=== PATIENT | female | born 1980 | race Asian ===

== ENCOUNTER 2019-08-13 18:32 | Outpatient (CLI) | payer SELFPAY | END 2019-08-13 18:33 | disposition EMS.NT | LOC: EMS 18:32 | PROVIDERS: ATTEND Surgery | DX: R55 Syncope and collapse (principal); F41.9 Anxiety disorder, unspecified ==

== ENCOUNTER 2020-02-01 12:24 | Emergency (ER) | payer OTHER ==
[2020-02-01 12:47] LABS: MUDS CUTOFF CONCENTRATIONS CUTOFF CONC BELOW:
[2020-02-01 12:47] LABS: BASOPHILS # (AUTO) 0.1 10^3/uL (0.0-0.1); BASOPHILS % (AUTO) 1.2 %; EOSINOPHILS # (AUTO) 0.6 10^3/uL (0.0-0.7); EOSINOPHILS % (AUTO) 5.5 %; HGB - HEMOGLOBIN 15.9 g/dL (12.0-16.0); LYMPHOCYTES # (AUTO) 2.3 10^3/uL (1.5-3.5); LYMPHOCYTES % (AUTO) 23.2 %; MEAN CORPUSCULAR HEMOGLOBIN 32.4 pg (27.0-31.0); MEAN CORPUSCULAR HGB CONC 32.9 g/dL (32.0-36.0); MEAN CORPUSCULAR VOLUME 98.8 fL (81.0-99.0); MEAN PLATELET VOLUME 8.6 fL (7.9-10.8); MONOCYTES # (AUTO) 0.7 10^3/uL (0.0-1.0); MONOCYTES % (AUTO) 6.8 %; NEUTROPHILS # (AUTO) 6.3 10^3/uL (1.5-6.6); NEUTROPHILS % (AUTO) 62.8 %; PLT - PLATELET COUNT 282 10^3/uL (130-450); WHITE BLOOD COUNT 10.1 x10^3/uL (4.8-10.8)
[2020-02-01 12:51] LABS: BILIRUBIN,URINE NEGATIVE (NEGATIVE); GLUCOSE, URINE (UA) NEGATIVE (NEGATIVE); KETONES,URINE (UA) NEGATIVE (NEGATIVE); LEUKOCYTE ESTERASE, URINE SMALL (NEGATIVE); NITRITE,URINE NEGATIVE (NEGATIVE); OCCULT BLOOD,URINE NEGATIVE (NEGATIVE); PH,URINE 6.5 PH (5.0-7.5); PROTEIN,URINE NEGATIVE (NEGATIVE); UROBILINOGEN,URINE 0.2 (NORMAL) E.U./dL (NORMAL)
[2020-02-01 12:56] LABS: CLARITY,URINE CLEAR (CLEAR); HCG UR QUAL NEGATIVE
[2020-02-01 13:03] LABS: ACETAMINOPHEN < 10 ug/mL (10-30); ALBUMIN 4.8 g/dL (3.2-5.5); ALBUMIN/GLOBULIN RATIO 1.2 (1.0-2.2); ALKALINE PHOSPHATASE 46 IU/L (42-121); ALT ALANINE AMINOTRANSFERASE 15 IU/L (10-60); AST ASPARTATE AMINOTRANSFERASE 14 IU/L (10-42); BUN - BLOOD UREA NITROGEN 6 mg/dL (6-20); CALCIUM 9.7 mg/dL (8.5-10.3); CARBON DIOXIDE - CO2 27 mmol/L (21-32); CHLORIDE 99 mmol/L (101-111); CREATININE 0.7 mg/dL (0.4-1.0); GLUCOSE 101 mg/dL (70-100); LIPASE 38 U/L (22-51); SALICYLATE < 6.0 mg/dL; SODIUM 136 mmol/L (135-145); TOTAL PROTEIN 8.9 g/dL (6.7-8.2)
[2020-02-01 13:07] LABS: RBC,URINE None Seen /HPF (0-5); SQUAMOUS EPITHELIAL CELL,UR MANY Squamous (<= Few)
[2020-02-01 13:08] LABS: BACTERIA,URINE Few /HPF (None Seen)
--- NOTE | 2020-02-01 13:10 | ED Physician Documentation ---
PD HPI MHE - Stated complaint Stated Complaint: SI - Chief complaint Chief Complaint: MHE - History obtained from History obtained from: Patient - History of Present Illness Primary symptom: Suicidal ideation Timing - onset: Chronic Pain level max: 0 Pain level now: 0 - Additional information Additional information: 39-year-old female presents to the emergency department stating that she is feeling increased depression and increased suicidal ideations recently. She states that she does not feel like she needs hospitalization. She feels safe at home. She is having marital troubles with her . She states that she wants to be at home with her children. Does not currently have a plan. Has a [facility] and [facility]. She states that she attempted suicide by overdosing on sleeping pills several weeks ago. Review of Systems Ten Systems: 10 systems reviewed and negative Constitutional: denies: Fever, Chills Eyes: reports: Reviewed and negative Ears: reports: Reviewed and negative Nose: reports: Reviewed and negative Throat: denies: Sore throat Cardiac: denies: Chest pain / pressure Respiratory: denies: Cough GI: denies: Nausea, Vomiting, Diarrhea : denies: Now EGA Skin: denies: Rash Musculoskeletal: denies: Neck pain, Back pain Neurologic: denies: Headache Psychiatric: reports: Depressed, Suicidal PD PAST MEDICAL HISTORY - Past Medical History Past Medical History: No Cardiovascular: None Respiratory: None GI: None 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 HEENT: None Psych: None Musculoskeletal: None - Past Surgical History Past Surgical History: No - Present Medications Home Medications: Ambulatory Orders Medication Instructions Recorded Confirmed Escitalopram [Lexapro] 10 mg PO DAILY 02/01/20 02/01/20 traZODone [Desyrel] 50 mg PO HS 02/01/20 02/01/20 - Allergies Allergies/Adverse Reactions: Allergies Allergy/AdvReac Type Severity Reaction Status Date / Time No Known Drug Allergies Allergy Verified 02/01/20 12:27 - Social History Does the pt smoke?: No Smoking Status: Never smoker Does the pt drink ETOH?: No Does the pt have substance abuse?: No - Immunizations Immunizations are current?: Yes PD ED PE NORMAL - Vitals Vital signs reviewed: Yes - General General: Alert and oriented X 3, No acute distress - HEENT HEENT: PERRL, Ears normal, Moist mucous membranes, Pharynx benign - Neck Neck: Supple, no meningeal sign - Cardiac Cardiac: RRR, Strong equal pulses - Respiratory Respiratory: No respiratory distress, Clear bilaterally - Abdomen Abdomen: Soft, Non tender, Non distended - Derm Derm: Warm and dry - Extremities Extremities: No edema, No calf tenderness / cord - Neuro Neuro: Alert and oriented X 3, custom furrier 2-12 intact, No motor deficit, No sensory deficit, Normal speech - Psych Psych: Normal mood, Normal affect Results - Vitals Vitals: Vital Signs - 24 hr 02/01/20 02/01/20 12:24 15:14 Temperature 36.7 C 36.8 C Heart Rate 83 77 Respiratory 18 16 Rate Blood Pressure 129/80 91/69 O2 Saturation 100 99 Oxygen O2 Source Room air - Labs Labs: Laboratory Tests 02/01/20 02/01/20 02/01/20 12:37 12:41 12:41 WBC 10.1 RBC 4.90 Hgb 15.9 Hct 48.4 H MCV 98.8 MCH 32.4 H MCHC 32.9 RDW 13.0 Plt Count 282 MPV 8.6 Neut # (Auto) 6.3 Lymph # (Auto) 2.3 [place] # (Auto) 0.7 Eos # (Auto) 0.6 Baso # (Auto) 0.1 Absolute Nucleated RBC 0.00 Nucleated RBC % 0.0 Sodium 136 Potassium 3.4 L Chloride 99 L Carbon Dioxide 27 Anion Gap 10.0 BUN 6 Creatinine 0.7 Estimated GFR (MDRD) 93 Glucose 101 H Calcium 9.7 Total Bilirubin 1.0 AST 14 ALT 15 Alkaline Phosphatase 46 Total Protein 8.9 H Albumin 4.8 Globulin 4.1 Albumin/Globulin Ratio 1.2 Lipase 38 TSH Urine Color YELLOW Urine Clarity CLEAR Urine pH 6.5 Ur Specific [place] <=1.005 Urine Protein NEGATIVE Urine Glucose (UA) NEGATIVE Urine Ketones NEGATIVE Urine Occult Blood NEGATIVE Urine Nitrite NEGATIVE Urine Bilirubin NEGATIVE Urine Urobilinogen 0.2 (NORMAL) Ur Leukocyte Esterase SMALL H Urine RBC None Seen Urine WBC 4-5 Ur Squamous Epith Cells MANY Squamous H Urine Bacteria Few Ur Microscopic Review INDICATED Urine Culture Comments NOT INDICATED Urine HCG, Qual NEGATIVE Salicylates < 6.0 Urine Opiates Screen NEGATIVE Ur Oxycodone Screen NEGATIVE Urine Methadone Screen NEGATIVE Ur Propoxyphene Screen NEGATIVE Acetaminophen < 10 L Ur Barbiturates Screen NEGATIVE Ur Tricyclics Screen NEGATIVE Ur Phencyclidine Scrn NEGATIVE Ur Amphetamine Screen NEGATIVE U Methamphetamines Scrn NEGATIVE U Benzodiazepines Scrn NEGATIVE Urine Cocaine Screen NEGATIVE U Cannabinoids Screen NEGATIVE Ethyl Alcohol < 5.0 02/01/20 12:41 WBC RBC Hgb Hct MCV MCH MCHC RDW Plt Count MPV Neut # (Auto) Lymph # (Auto) [place] # (Auto) Eos # (Auto) Baso # (Auto) Absolute Nucleated RBC Nucleated RBC % Sodium Potassium Chloride Carbon Dioxide Anion Gap BUN Creatinine Estimated GFR (MDRD) Glucose Calcium Total Bilirubin AST ALT Alkaline Phosphatase Total Protein Albumin Globulin Albumin/Globulin Ratio Lipase TSH 0.28 L Urine Color Urine Clarity Urine pH Ur Specific [place] Urine Protein Urine Glucose (UA) Urine Ketones Urine Occult Blood Urine Nitrite Urine Bilirubin Urine Urobilinogen Ur Leukocyte Esterase Urine RBC Urine WBC Ur Squamous Epith Cells Urine Bacteria Ur Microscopic Review Urine Culture Comments Urine HCG, Qual Salicylates Urine Opiates Screen Ur Oxycodone Screen Urine Methadone Screen Ur Propoxyphene Screen Acetaminophen Ur Barbiturates Screen Ur Tricyclics Screen Ur Phencyclidine Scrn Ur Amphetamine Screen U Methamphetamines Scrn U Benzodiazepines Scrn Urine Cocaine Screen U Cannabinoids Screen Ethyl Alcohol PD MEDICAL DECISION MAKING - ED course Complexity details: reviewed results, re-evaluated patient, considered differential, d/w patient, d/w continuous improvement consultant ED course: Patient with depression. Not currently suicidal. Discussed the case with social work, social work consulted on the patient and the patient will follow-up with her counselor as an outpatient. She is able to contract for safety. Resources given. Patient counseled regarding signs and symptoms for which I believe and urgent re-evaluation would be necessary. Patient with good understanding of and agreement to plan and is comfortable going home at this time This document was made in part using voice recognition software. While efforts are made to proofread this document, sound alike and grammatical errors may occur. Departure - Departure Disposition: Home, Self Care Clinical Impression: Depression Qualifiers: Depression Type: unspecified Qualified Code(s): F32.9 - Major depressive disorder, single episode, unspecified Condition: Good Instructions: ED Depression Follow-Up: your,doctor on tuesday [Other] Comments: Follow-up as directed by social work today. Return if you worsen. Follow-up on Tuesday with your doctor for further care. Crisis Line and is available to talk to someone [email or web address] is also available to chat with someone online if you prefer. There are also many resources on this website and apps for your phone to help with your mental health You can also text the word START to [phone] to chat with someome via text. Discharge Date/Time: 02/01/20 15:14
[2020-02-01 13:16] LABS: AMPHETAMINE SCREEN,URINE NEGATIVE (NEGATIVE); BENZODIAZEPINES SCREEN, URINE NEGATIVE (NEGATIVE); COCAINE SCREEN URINE NEGATIVE (NEGATIVE); METHADONE SCREEN, URINE NEGATIVE (NEGATIVE); METHAMPHETAMINES SCREEN, URINE NEGATIVE (NEGATIVE); OPIATE SCREEN, URINE NEGATIVE (NEGATIVE); OXYCODONE SCREEN, URINE NEGATIVE (NEGATIVE); PROPOXYPHENE SCREEN, URINE NEGATIVE (NEGATIVE); TRICYCLIC ANTIDEPRESSANT,URINE NEGATIVE (NEGATIVE)
[2020-02-01 15:15] VITALS: BP 91/69
== END 2020-02-01 15:14 | disposition home or self-care (01) ==
LOC: EDUNIT# → ED 12:24
DX: F32.9 Major depressive disorder, single episode, unspecified (principal)
CPT/HCPCS: 36415; 80053; 80306; 80307; 80320; 80329; 81001; 81003; 81025; 83690; 84443; 85025; 87086; 99283; 99284

== ENCOUNTER 2020-02-11 10:23 | Day surgery (SDC) | payer OTHER ==
--- NOTE | 2020-02-11 10:41 | ANESTHESIA ---
Pre-Anesthesia VS, & Labs - Diagnosis IUD strings lost - Procedure IUD removal and replacement Height 5 ft 6.14 in Weight (kg) 61 kg Body Mass Index 21.4 - NPO >8 hours - Is Patient ?: No - Lab Results Lab results reviewed: Yes Home Medications and Allergies Home Medications: Ambulatory Orders Acetaminophen [Tylenol] 650 mg PO Q6H PRN 02/05/20 Levonorgestrel 20 Mcg/24H [Mirena] 1 each IY 02/05/20 Escitalopram [Lexapro] 15 mg PO DAILY 02/01/20 traZODone [Desyrel] 50 mg PO HS 02/01/20 Acetaminophen [Tylenol] 650 mg PO Q6H PRN 02/05/20 Levonorgestrel 20 Mcg/24H [Mirena] 1 each IY 02/05/20 Allergies/Adverse Reactions: Allergies Allergy/AdvReac Type Severity Reaction Status Date / Time No Known Drug Allergies Allergy Verified 02/05/20 09:42 Anes History & Medical History - Anesthetic History Anesthesia Complications: reports: No previous complications Family history of Anesthesia Complications: Denies Family history of Malignant Hyperthermia: Denies - Medical History Cardiovascular: reports: None Pulmonary: reports: None Gastrointestinal: reports: None Urinary: reports: Other Musculoskeletal: reports: None Endocrine/Autoimmune: reports: None Blood Disorders: reports: None Skin: reports: None Smoking Status: Current every day smoker Exam General: Alert, Oriented x3, Cooperative, No acute distress Dental: WNL Mouth Openin Fingerbreadth Neck Mobility: Normal Mallampati classification: II Respiratory: Lungs clear, Normal breath sounds, No respiratory distress, No accessory muscle use Cardiovascular: Regular rate, Normal S1, Normal S2, No murmurs Cognitive Status: Within normal limits Plan Anesthesia Type: MAC Consent for Procedure(s) Verified and Reviewed: Yes Code Status: Attempt Resuscitation ASA classification: 1-Healthy patient Is this case an emergency?: No
[2020-02-11] MEDS ORDERED: ePHEDrine 50 MG/ML VIAL IVP PRN (10:42)
[2020-02-11] MEDS ORDERED: MORPHINE 2 MG/ML CARPUJECT IVP PRN (10:42)
[2020-02-11] MEDS ORDERED: ONDANSETRON 4 MG/2 ML VIAL IVP PRN (10:42)
[2020-02-11] MEDS ORDERED: HYDROmorphone 0.5 MG/0.5 ML SYRINGE IVP PRN (10:42)
[2020-02-11] MEDS ORDERED: fentaNYL 100 MCG/2 ML VIAL IVP PRN (10:42)
[2020-02-11] MEDS ORDERED: METOCLOPRAMIDE 10 MG/2 ML VIAL IVP PRN (10:42)
[2020-02-11] MEDS ORDERED: ATROPINE ABBOJECT 1 MG/10 ML SYRINGE IVP PRN (10:42)
[2020-02-11] MEDS ORDERED: NALOXONE 0.4 MG/ML VIAL IVP PRN (10:42)
[2020-02-11 10:51] LABS: HCG UR QUAL NEGATIVE
[2020-02-11] MEDS ORDERED: LACTATED RINGERS 1,000 ML IV ONE ×2 (10:51→12:49)
[2020-02-11] MEDS ORDERED: LACTATED RINGERS 1,000 ML IV SCH (11:00)
[2020-02-11] MEDS ORDERED: LEVONORGESTREL 20 MCG/24H IUD IY ONE ×2 (11:08→12:41)
[2020-02-11] MEDS ORDERED: LIDOCAINE 1% 50 ML MDV ONE (11:12)
[2020-02-11] MEDS ORDERED: LIDOCAINE 1% 50 ML MDV SUBQ ONE ×2 (12:39)
--- NOTE | 2020-02-11 12:52 | OPERATIVE REPORT ---
Operative Report - General Procedure Date: 02/11/20 Planned Procedure: Remove and replace Mirena IUD Pre-Op Diagnosis: Lost IUD string Procedure Performed: Same as above Post Op Diagnosis: Same as above - Procedure Note Primary Surgeon: Bryon Anesthesia Provider: Abner Anesthesia Technique: MAC IV Fluids (mL): 200 Estimated Blood Loss (mL): 0 Indications: IUD string not visible and unable to be retrieved in the office. On ultrasound the IUD string was seen to be 5 cm within the uterine cavity. Findings: Exam under anesthesia The uterus was of normal size, shape, and consistency, and anteverted. The adnexa were benign. Operative findings The uterus sounded to 9 cm. - Other Other Information/Narrative: The patient was brought to the operating room and placed supine on the operating table. She was then given sedation in the form of monitored anesthesia care. Her legs were placed in low lithotomy stirrups and she was prepped and draped in the usual sterile fashion. A timeout was performed. An exam under anesthesia was performed. A speculum was placed in her vagina. A single-tooth tenaculum was applied to her cervix and the uterus was sounded to 8 cm. The old IUD was removed with an alligator forcep. A Mirena IUD was placed without incident and the string was shortened to 3 cm. The tenaculum was removed. Instruments were withdrawn from the vagina and the patient was awakened and taken to the same day surgery suite in stable condition.
--- NOTE | 2020-02-11 12:53 | ANESTHESIA POST OP EVALUATION ---
Anesthesia Post Eval - Post Anesthesia Eval Vitals: Last Vital Signs Temp 36.5 C 02/11/20 10:40 Pulse 68 02/11/20 10:40 Resp 16 02/11/20 10:40 BP 113/66 02/11/20 10:40 Pulse Ox 99 02/11/20 10:40 CV Function Including HR & BP: positive: Stable Pain Control: positive: Satisfactory Nausea & Vomiting: positive: Negative Mental Status: positive: Baseline Respiratory Status: Airway Patent Hydration Status: Satisfactory Anesthesia Complications: positive: None
[2020-02-11 13:05] VITALS: BP 22/79
== END 2020-02-11 10:24 | disposition home or self-care (01) ==
LOC: SDS 10:23
PROVIDERS: ATTEND Obstetrics & Gynecology
DX: Z30.433 Encounter for removal and reinsertion of intrauterine contraceptive device (principal); F17.210 Nicotine dependence, cigarettes, uncomplicated
CPT/HCPCS: 81025

== ENCOUNTER 2020-04-06 11:37 | Outpatient (CLI) | payer OTHER | END 2020-04-06 11:38 | disposition critical access hospital (66) | LOC: EMS 11:37 | PROVIDERS: ATTEND Surgery | DX: T43.212A Poisoning by selective serotonin and norepinephrine reuptake inhibitors, intentional self-harm, initial encounter (principal) | CPT/HCPCS: A0425; A0427 ==

== ENCOUNTER 2020-04-06 12:05 | Emergency (ER) | payer OTHER ==
[2020-04-06] MEDS ORDERED: CHARCOAL ACTIVATED 25 GM/120 ML BOTTLE PO STA (12:23)
[2020-04-06] MEDS ORDERED: CHARCOAL/SORBITOL 50 GM/240 ML PO STA (12:23)
[2020-04-06] MEDS ORDERED: SODIUM CHLORIDE 0.9% 1,000 ML IV STA (12:24)
--- NOTE | 2020-04-06 12:32 | ED Physician Documentation ---
History of Present Illness - Stated complaint Stated Complaint: OD - Chief complaint Chief Complaint: General - History obtained from History obtained from: Patient, EMS - History of Present Illness Timing: Today Pain level max: 0 Pain level now: 0 - Additonal information Additional information: 39-year-old female presents to the emergency department stating that she had a fight with her today and an attempt to kill herself took 1000 mg of trazodone p.o. This occurred approximately 1 hour prior to arrival. She states that she last attempted suicide approximately 2 to 3 months ago and was hospitalized at that time. She still feels suicidal, does not currently have a plan. Nothing makes it better or worse. 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 : Other HEENT: None Psych: Other Musculoskeletal: None Derm: None - Past Surgical History Past Surgical History: No - Present Medications Home Medications: Ambulatory Orders Medication Instructions Recorded Confirmed Escitalopram [Lexapro] 15 mg PO DAILY 02/01/20 02/01/20 traZODone [Desyrel] 50 mg PO HS 02/01/20 02/01/20 Acetaminophen [Tylenol] 650 mg PO Q6H PRN 02/05/20 02/11/20 Levonorgestrel 20 Mcg/24H [Mirena] 1 each IY 02/05/20 - Allergies Allergies/Adverse Reactions: Allergies Allergy/AdvReac Type Severity Reaction Status Date / Time No Known Drug Allergies Allergy Verified 04/06/20 12:31 - Social History Does the pt smoke?: No Smoking Status: Current every day smoker Does the pt drink ETOH?: No Does the pt have substance abuse?: No - Immunizations Immunizations are current?: Yes PD ED PE NORMAL - Vitals Vital signs reviewed: Yes - General General: Alert and oriented X 3, No acute distress - HEENT HEENT: Moist mucous membranes - Neck Neck: Supple, no meningeal sign - Cardiac Cardiac: RRR - Respiratory Respiratory: No respiratory distress, Clear bilaterally - Abdomen Abdomen: Soft, Non tender, Non distended - Derm Derm: Warm and dry - Extremities Extremities: No edema, No calf tenderness / cord - Neuro Neuro: Alert and oriented X 3 - Psych Psych: Normal mood, Normal affect Results - Vitals Vitals: Vital Signs - 24 hr 04/06/20 04/06/20 04/06/20 12:25 12:58 13:01 Temperature 36.6 C Heart Rate 78 91 95 Respiratory 16 17 22 Rate Blood Pressure 116/70 116/91 H 120/68 O2 Saturation 98 99 22 L 04/06/20 04/06/20 04/06/20 13:31 14:01 14:31 Temperature Heart Rate 68 66 66 Respiratory 15 16 16 Rate Blood Pressure 107/67 101/66 101/66 O2 Saturation 98 96 96 04/06/20 04/06/20 04/06/20 15:00 15:30 16:00 Temperature Heart Rate 74 71 71 Respiratory 16 15 16 Rate Blood Pressure 118/68 112/64 105/66 O2 Saturation 97 97 97 04/06/20 04/06/20 04/06/20 16:30 17:00 17:30 Temperature Heart Rate 72 74 76 Respiratory 17 18 14 Rate Blood Pressure 106/67 105/67 108/67 O2 Saturation 96 96 97 04/06/20 04/06/20 04/06/20 18:04 18:35 19:07 Temperature Heart Rate 76 65 72 Respiratory 14 Rate Blood Pressure 108/67 99/58 L 95/60 O2 Saturation 96 04/06/20 04/06/20 04/06/20 19:37 20:41 21:43 Temperature Heart Rate 60 68 65 Respiratory 15 Rate Blood Pressure 112/64 102/66 101/55 L O2 Saturation 98 Oxygen O2 Source Room air - EKG (time done) 1249 Rate: Rate (enter#) (75) Rhythm: NSR [place]: Normal Intervals: Normal NV QRS: Normal Ischemia: Normal ST segments - Labs Labs: Laboratory Tests 04/06/20 04/06/20 04/06/20 12:53 12:53 12:53 WBC 11.0 H RBC 4.50 Hgb 14.3 Hct 43.2 MCV 96.0 MCH 31.8 H MCHC 33.1 RDW 12.9 Plt Count 257 MPV 8.7 Neut # (Auto) 7.7 H Lymph # (Auto) 1.4 L [place] # (Auto) 1.2 H Eos # (Auto) 0.5 Baso # (Auto) 0.1 Absolute Nucleated RBC 0.00 Nucleated RBC % 0.0 Sodium 138 Potassium 3.5 Chloride 103 Carbon Dioxide 25 Anion Gap 10.0 BUN 13 Creatinine 0.6 Estimated GFR (MDRD) 111 Glucose 105 H Calcium 8.9 Total Bilirubin 0.8 AST 13 ALT 14 Alkaline Phosphatase 35 L Total Protein 7.1 Albumin 3.8 Globulin 3.3 Albumin/Globulin Ratio 1.2 Lipase 40 TSH 0.20 L Free T4 Urine Color Urine Clarity Urine pH Ur Specific [place] Urine Protein Urine Glucose (UA) Urine Ketones Urine Occult Blood Urine Nitrite Urine Bilirubin Urine Urobilinogen Ur Leukocyte Esterase Urine RBC Urine WBC Ur Squamous Epith Cells Amorphous Sediment Urine Bacteria Ur Microscopic Review Urine Culture Comments Urine HCG, Qual Salicylates < 6.0 Urine Opiates Screen Ur Oxycodone Screen Urine Methadone Screen Ur Propoxyphene Screen Acetaminophen < 10 L Ur Barbiturates Screen Ur Tricyclics Screen Ur Phencyclidine Scrn Ur Amphetamine Screen U Methamphetamines Scrn U Benzodiazepines Scrn Urine Cocaine Screen U Cannabinoids Screen Ethyl Alcohol < 5.0 04/06/20 04/06/20 12:53 14:55 WBC RBC Hgb Hct MCV MCH MCHC RDW Plt Count MPV Neut # (Auto) Lymph # (Auto) [place] # (Auto) Eos # (Auto) Baso # (Auto) Absolute Nucleated RBC Nucleated RBC % Sodium Potassium Chloride Carbon Dioxide Anion Gap BUN Creatinine Estimated GFR (MDRD) Glucose Calcium Total Bilirubin AST ALT Alkaline Phosphatase Total Protein Albumin Globulin Albumin/Globulin Ratio Lipase TSH Free T4 1.35 Urine Color YELLOW Urine Clarity CLOUDY Urine pH 7.0 Ur Specific [place] 1.020 Urine Protein NEGATIVE Urine Glucose (UA) NEGATIVE Urine Ketones NEGATIVE Urine Occult Blood SMALL H Urine Nitrite NEGATIVE Urine Bilirubin NEGATIVE Urine Urobilinogen 0.2 (NORMAL) Ur Leukocyte Esterase SMALL H Urine RBC 6-10 H Urine WBC 6-10 H Ur Squamous Epith Cells FEW Squamous Amorphous Sediment Moderate Urine Bacteria Moderate H Ur Microscopic Review INDICATED Urine Culture Comments INDICATED Urine HCG, Qual NEGATIVE Salicylates Urine Opiates Screen NEGATIVE Ur Oxycodone Screen NEGATIVE Urine Methadone Screen NEGATIVE Ur Propoxyphene Screen NEGATIVE Acetaminophen Ur Barbiturates Screen NEGATIVE Ur Tricyclics Screen NEGATIVE Ur Phencyclidine Scrn NEGATIVE Ur Amphetamine Screen NEGATIVE U Methamphetamines Scrn NEGATIVE U Benzodiazepines Scrn NEGATIVE Urine Cocaine Screen NEGATIVE U Cannabinoids Screen NEGATIVE Ethyl Alcohol PD MEDICAL DECISION MAKING - ED course Complexity details: reviewed old records, reviewed results, re-evaluated patient, considered differential, d/w patient, d/w solutions sales consultant ED course: 39-year-old female with an intentional overdose on trazodone today. Telepsychiatry was consulted after the patient was observed for clearance of the trazodone. She was given activated charcoal with sorbitol as well. No arrhythmias in the emergency department. Telepsychiatry, Dr. Tillman recommends inpatient admission. Discussed with the patient and she refuses admission. She states that she does not feel she needs inpatient care. Patient states that she still feels suicidal. She wants to send her kids to school in the morning. This is her second attempt in 2 months. As she refuses voluntary care, consulted the DCR, Adelia. Patient will be signed out to the oncoming emergency department physician awaiting final disposition. Departure - Departure Clinical Impression: Intentional overdose of drug in tablet form Suicidal overdose Qualifiers: Encounter type: initial encounter Qualified Code(s): T50.902A - Poisoning by unspecified drugs, medicaments and biological substances, intentional self-harm, initial encounter Depression Qualifiers: Depression Type: major depressive disorder Active/Remission status: currently active Major depression episode severity: severe Psychotic features: without psychotic features Qualified Code(s): F32.9 - Major depressive disorder, single episode, unspecified Condition: Stable
[2020-04-06 13:09] LABS: BASOPHILS # (AUTO) 0.1 10^3/uL (0.0-0.1); BASOPHILS % (AUTO) 0.9 %; EOSINOPHILS # (AUTO) 0.5 10^3/uL (0.0-0.7); EOSINOPHILS % (AUTO) 4.7 %; HGB - HEMOGLOBIN 14.3 g/dL (12.0-16.0); LYMPHOCYTES # (AUTO) 1.4 10^3/uL (1.5-3.5); LYMPHOCYTES % (AUTO) 12.7 %; MEAN CORPUSCULAR HEMOGLOBIN 31.8 pg (27.0-31.0); MEAN CORPUSCULAR HGB CONC 33.1 g/dL (32.0-36.0); MEAN PLATELET VOLUME 8.7 fL (7.9-10.8); MONOCYTES # (AUTO) 1.2 10^3/uL (0.0-1.0); MONOCYTES % (AUTO) 10.5 %; NEUTROPHILS # (AUTO) 7.7 10^3/uL (1.5-6.6); NEUTROPHILS % (AUTO) 70.6 %; PLT - PLATELET COUNT 257 10^3/uL (130-450); RED CELL DISTRIBUTION WIDTH 12.9 % (12.0-15.0)
[2020-04-06 13:22] LABS: ACETAMINOPHEN < 10 ug/mL (10-30); ALBUMIN 3.8 g/dL (3.2-5.5); ALBUMIN/GLOBULIN RATIO 1.2 (1.0-2.2); ALKALINE PHOSPHATASE 35 IU/L (42-121); ALT ALANINE AMINOTRANSFERASE 14 IU/L (10-60); AST ASPARTATE AMINOTRANSFERASE 13 IU/L (10-42); BILIRUBIN,TOTAL 0.8 mg/dL (0.2-1.0); BUN - BLOOD UREA NITROGEN 13 mg/dL (6-20); CALCIUM 8.9 mg/dL (8.5-10.3); CARBON DIOXIDE - CO2 25 mmol/L (21-32); CHLORIDE 103 mmol/L (101-111); CREATININE 0.6 mg/dL (0.4-1.0); GLUCOSE 105 mg/dL (70-100); LIPASE 40 U/L (22-51); SALICYLATE < 6.0 mg/dL; SODIUM 138 mmol/L (135-145); TOTAL PROTEIN 7.1 g/dL (6.7-8.2)
[2020-04-06 15:02] LABS: MUDS CUTOFF CONCENTRATIONS CUTOFF CONC BELOW:
[2020-04-06 15:05] LABS: BILIRUBIN,URINE NEGATIVE (NEGATIVE); GLUCOSE, URINE (UA) NEGATIVE (NEGATIVE); KETONES,URINE (UA) NEGATIVE (NEGATIVE); LEUKOCYTE ESTERASE, URINE SMALL (NEGATIVE); NITRITE,URINE NEGATIVE (NEGATIVE); OCCULT BLOOD,URINE SMALL (NEGATIVE); PROTEIN,URINE NEGATIVE (NEGATIVE); UROBILINOGEN,URINE 0.2 (NORMAL) E.U./dL (NORMAL)
[2020-04-06 15:11] LABS: CLARITY,URINE CLOUDY (CLEAR); HCG UR QUAL NEGATIVE
[2020-04-06 15:19] LABS: AMORPHOUS SEDIMENT,UR Moderate /LPF; AMPHETAMINE SCREEN,URINE NEGATIVE (NEGATIVE); BACTERIA,URINE Moderate /HPF (None Seen); BENZODIAZEPINES SCREEN, URINE NEGATIVE (NEGATIVE); COCAINE SCREEN URINE NEGATIVE (NEGATIVE); METHADONE SCREEN, URINE NEGATIVE (NEGATIVE); METHAMPHETAMINES SCREEN, URINE NEGATIVE (NEGATIVE); OPIATE SCREEN, URINE NEGATIVE (NEGATIVE); OXYCODONE SCREEN, URINE NEGATIVE (NEGATIVE); PROPOXYPHENE SCREEN, URINE NEGATIVE (NEGATIVE); SQUAMOUS EPITHELIAL CELL,UR FEW Squamous (<= Few); TRICYCLIC ANTIDEPRESSANT,URINE NEGATIVE (NEGATIVE)
--- NOTE | 2020-04-06 20:31 | TELEPSYCH PHYS NOTE ---
Telepsych Note - CHIEF COMPLAINT/HX OF PRESENT ILLNESS Cheif Complaint and History of Present Illness: PT came in following an overdose on Trazodone. She admits to suicidal thoughts and attempted 2 mo ago by same method. Pt said her sleep is okay but she feels exhausted all the time. She denied h/o trauma or abuse. She denied s/o laureano or perceptual disturbances. She admits to SIB by hitting herself in the head with objects. She denied thoughts of harm to others or h/o violence - SI/HI/SELF HARM SI/HI/SELF HARM (CURRENT OR HISTORY OF):: SI, Self Harm SI/HI/Self Harm Text (Current or History of):: PT has attempted suicide twice by OD in the last 2months. She has a h/o SIB by hitting her head with objects. - VIOLENCE/LEGAL/COLLATERAL Violence - Legal - Collateral: PT denied thoughts of harm to others or h/o violence. She denied legal issues. - PSYCHIATRIC HX/TREATMENT HX Psychiatric: Depression, Anxiety, Other Psychiatric/Treatment Hx Other: PT was discharged to outpatient care last ED visit for suicide attempt by OD. SHe has been in group therapy and started on Lexapro. She said her therapist is Adelia Mueller - DRUG/ALCOHOL HX Substance use/abuse/alcohol text: Pt denied use of illicit drugs. She said she drinks occasionally but denied blackouts, DTs or sz - MEDICAL HX Does the pt have a hx of MRSA?: No Eyes, Ears, Nose, Throat: None Cardiovascular: None Respiratory: None Skin: None Endocrine/Autoimmune: None Gastrointestinal: None Is Patient ?: No Urinary: Other Musculoskeletal: None Blood Disorders: None PMH Other: PT denied medical issues, sz or head trauma - HOME MEDICATIONS Home Meds (as last confirmed): Patient History Medication Instructions Recorded Confirmed Escitalopram [Lexapro] 15 mg PO DAILY 02/01/20 02/01/20 traZODone [Desyrel] 50 mg PO HS 02/01/20 02/01/20 Acetaminophen [Tylenol] 650 mg PO Q6H PRN 02/05/20 02/11/20 Levonorgestrel 20 Mcg/24H [Mirena] 1 each IY 02/05/20 - ALLERGIES Allergies (as last confirmed): Allergies Allergy/AdvReac Type Severity Reaction Status Date / Time No Known Drug Allergies Allergy Verified 04/06/20 12:31 - FAMILY PSYCH/SUICIDE/SOCIAL HX-MENTAL Family - Suicide - Social Hx and Mental Status Exam: FH: PT denied family hx of mental health issues, substance issues or suicides SH: PT said she lives with her of 14yrs and their 2 kids ages 13y/o and 5y/o. 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 SHe endorsed having a gun at home. no legal issues. [employer] system was not working so interview had to be by phone: Pt said her mood was depressed. Her speech was slow and slurred. SHe endorsed suicidal thoughts but denied thoughts of harm to others. She did not sound manic and denied perceptual disturbances. insight and judgment were poor. - PATIENT PROBLEM LIST (1) Depression Qualifiers: Depression Type: major depressive disorder Active/Remission status: currently active Major depression episode severity: severe Psychotic features: without psychotic features Qualified Code(s): F32.9 - Major depressive disorder, single episode, unspecified Impression: PT is a 39y/o mf with h/o depression who returns for the second time in 2mo following suicide attempt by OD. She admits to SIB by hitting herself in the head with objects. SHe says she feels exhausted all the time and denied anticipating any future events. HEr sisters are her main support but are in the [facility]. She provided consent to speak with her for collateral however he did not answer the phone. [place] [phone]. Given that this is patients 2 suicide attempt in 2 months, she is not future oriented, she has no local supports and she has access to a gun, recommend admit to inpatient psych for mood stabilization and safety. Case discussed with Dr Andrade - TREATMENT/PHARMACOLOGICAL RECOMMENDATION Treatment - Pharmacological - Therapy Recommendations: Admit to inpatient psych for mood stabilization and safety PRovide safety precautions 1:1 Hold Trazodone Zyprexa 5mg po/im q 4h prn agitation/psychosis - TIME SPENT & PROVIDER LOCATION Telepsych consultation conducted via videoconferencing: Yes List names and roles of persons who participated in consult: Martina and DR Tillman Telepsych Provider Location: [place] Time Telepsych consult began: 22:30 Time Telepsych consult completed: 22:40
[2020-04-07 08:18] VITALS: BP 123/69
== END 2020-04-07 09:44 ==
LOC: ED 12:05
DX: T43.212A Poisoning by selective serotonin and norepinephrine reuptake inhibitors, intentional self-harm, initial encounter (principal); F32.9 Major depressive disorder, single episode, unspecified; F17.200 Nicotine dependence, unspecified, uncomplicated
CPT/HCPCS: 36415; 80320; 80329; 81001; 81025; 83690; 84439; 87086; 93005; 96360; 96361; 99284; 99285; A9270; 80053; 80306; 80307; 81003; 84443; 85025